=== PATIENT | male | born 1985 | race Caucasian/White ===

== ENCOUNTER 2021-11-03 12:38 | Emergency (ER) | payer OTHER ==
--- OUTSIDE RECORDS SUMMARY | 2021-11-03 12:40 | XMS REPORT | Continuity of Care Document ---
:1985 Author Organization [facility] t Address [address] [place] [address] [address] [place] [address] Care Team Providers Name Role Phone JOSE MARIA VAN Attending Clinician Unavailable PAULETTE Attending Clinician Unavailable TERRI Attending Clinician Unavailable Payers Payer Name Policy Type Policy Number Effective Date Expiration Date S liam [facility] [id number] 2020 00:00:00 Problems Condition Condition Condition Status Onset Resolution Last Treating Co mments Source Name Details Category Date Date Treatment Clinician Date Pain in Pain in Problem Active Univers both hands both hands [id number] [facility] [place] [facility] Bilateral Bilateral Problem 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 Physic i ans Allergies, Adverse Reactions, Alerts Allergy Allergy Status Severity Reaction(s) Onset Inactive Treating Comm ents Source Name Type Date Date Clinician Penicill Propensi Active Unknown Don't [place] ins ty to 4-20 Remember- Health adverse 00:00: was very reaction 00 young s Sulfa Propensi Active Unknown Don't [place] Antibiot ty to 4-20 Remember- Healt h ics adverse 00:00: was very reaction 00 young s Social History Social Habit Start Date Stop Date Quantity Comments Source Exposure to Not sure [facility] SARS-CoV-2 (event) Tobacco use and 2021-01-12 2021-01-12 Never used [place] Health exposure 00:00:00 00:00:00 Sex Ass[birth year] At [birth year] [facility] 00:00:00 00:00:00 Smoking Status Start Date Stop Date Source Never smoker [facility] Medications Ordered Filled Start Stop Current Ordering Indication Dosage Frequency Signature Comments Components Source Medication Medication Date Date Medication? Clinician (SIG) Name Name Diclofenac Diclofenac 2017-08 Yes ROQUE apply 1-2 Univers Sodium 1 % Sodium 1 % 0-02 GREASER grams to ity of Transdermal Transdermal 00:00: Jensen affected [place] Gel Gel 00 area 3-4 Physici times ans daily No known No [facility] medications Health Procedures Procedure Date / Time Performed Performing Clinician Reg e XR SHOULDER 2+ VIEWS 2021-01-12 13:42:22 Mckenzie Van [place] He alth LEFT Post Op [facility] 29 2018-09-05 00:00:00 [facility] Survey Physicians [UTP] Ortho - Surgery 2018-08-04 00:00:00 [facility] Scheduling Physicians [U] XRAY HAND MIN 3 2018-05-26 00:00:00 [facility] VWS RIGHT [id number] Physicians Plan of Care Planned Activity Planned Date Details Comments Source Diagnostic Test 2018-08-04 [UTP] Ortho - [facility] Pending 00:00:00 Surgery Scheduling Physician s [code = [UTP] Ortho - Surgery Scheduling] Encounters Start End Encounter Admission Attending Care Care Encounter Source Date/Time Date/Time Type Type Clinicians Facility Department ID 2021-01-12 Outpatient NI Mckenzie [facility] [id number] [place] 09:01:46 Health 2021-01-12 Outpatient [facility] [id number] [place] 08:33:53 Health 2021-01-12 2021-01-12 Office Mckenzie Van [facility] [id number] [place] 08:09:59 09:01:55 Visit [facility] [id number] Critical access hospital [id number] [facility] [id number] 2018-08-25 2018-08-25 Appointmen PAULETTE [facility] [id number] Univers 10:00:00 10:00:00 t; Jensen SCHAFER Ortho and ity of [facility] Spine WLS Bart s [facility] Brian Styles [place] ans 2018-08-14 2018-08-14 Appointmen PAULETTE [facility] [id number] Univers 09:30:00 09:30:00 t; Jensen SCHAFER it y of [place], [place] Brian SCHAFER M.D. ans 2018-08-04 2018-08-04 Appointmen PA[facility]LETTE [facility] [id number] Univers 09:45:00 09:45:00 t; Jensen SCHAFER Ortho and ity of [place], Spine WLS [place] Owen M.D. [place] POD 2 ans 2018-05-26 2018-05-26 [facility] [id number] Univers 08:30:00 08:30:00 t; Jensen SCHAFER Orthopedic ity [facility], Surgery - Bart SCHAFER Pendletonmillie Dunlap i, M.D. ans 2018-05-19 2018-05-[facility] [id number] Univers 14:45:00 14:45:00 t; Aminata NEVAREZ M.D. Orthopedics Will as Brian NEVAREZ M.D. ans Results Test Description Test Time Test Comments Results Result Sour e Comments XR shoulder 2+ 2021-01-12 Left shoulder: [place] Hea lth views left 13:52:15 Negative for fracture or dislocation [U] XRAY HAND MIN 2018-05-26 Images acquired, U niversity of 3 VWS LEFT [id number] 08:47:00 not reported on [place] as this accession Physicians number. [U] XRAY HAND MIN 2018-05-26 Images acquired, U niversity of 3 VWS RIGHT [id number] 08:47:00 [place] Physicians [place]. [U] XRAY ANKLE 2018-05-19 Images acquired, Univ ersity of MIN 3 VWS LEFT 14:33:00 not reported on [place] [address] this accession Physicians number.
--- NOTE | 2021-11-03 14:16 | RAD REPORT ---
EXAM DESCRIPTION: RAD - Knee Left 3 View - 11/03/2021 2:07 pm CLINICAL HISTORY: PAIN COMPARISON: No comparisons FINDINGS: Avulsion fracture is seen involving the lateral aspect of the patella. Small bony fragment s are present inferiorly. Patella william is noted.
--- NOTE | 2021-11-03 15:56 | EDPHYS ---
Physician Documentation [facility] [place] [facility] Name: José Miguel Zuniga Age: 35 yrs Sex: Male : 1985 Arrival Date: 11/03/2021 Time: 12:49 Bed 7 Private MD: ED Physician Sheyla Ortiz HPI: 11/03 15:58 This 35 yrs old Male presents to ER via EMS with complaints of Knee Injury. jr8 15:58 Onset: The symptoms/episode began/occurred acutely, today. Modifying factors: The jr8 symptoms are alleviated by remaining still, the symptoms are aggravated by movement. Associated signs and symptoms: The patient has no apparent associated signs or symptoms. Severity of symptoms: At their worst the symptoms were moderate, in the emergency department the symptoms are unchanged. The patient has not experienced similar symptoms in the past. The patient has not recently seen a physician. This is a 35-year-old male patient that presented to the emergency room with complaints of left knee pain. Patient stated that he was getting ready to leave a beach house and was moving things out. Was coming down the stairs and while doing so felt an immediate pop to his left knee. Patient since then has had difficulty with bearing weight and movement of the leg at the site of the knee.. Historical: - Allergies: 12:58 PENICILLINS; ld1 - Home Meds: 12:58 None [Active]; ld1 - PMHx: 12:58 None; ld1 - PSHx: 12:58 None; ld1 - Immunization history:: Adult Immunizations up to date, Client reports receiving the 2nd dose of the Covid vaccine. - Social history:: Smoking status: Patient denies any tobacco usage or history of. Patient uses alcohol. ROS: 15:58 Eyes: Negative for injury, pain, redness, and discharge, ENT: Negative for injury, jr8 pain, and discharge, Neck: Negative for injury, pain, and swelling, Cardiovascular: Negative for chest pain, palpitations, and edema, Respiratory: Negative for shortness of breath, cough, wheezing, and pleuritic chest pain, Abdomen/GI: Negative for abdominal pain, nausea, vomiting, diarrhea, and constipation, Back: Negative for injury and pain, Skin: Negative for injury, rash, and discoloration, Neuro: Negative for headache, weakness, numbness, tingling, and seizure. 15:58 MS/extremity: Positive for decreased range of motion, pain, swelling, tenderness, of the left knee. Exam: 15:58 Constitutional: This is a well developed, well nourished patient who is awake, alert, jr8 and in no acute distress. Cardiovascular: Regular rate and rhythm with a normal S1 and S2. No gallops, murmurs, or rubs. Normal PMI, no JVD. No pulse deficits. Respiratory: Lungs have equal breath sounds bilaterally, clear to auscultation and percussion. No rales, rhonchi or wheezes noted. No increased work of breathing, no retractions or nasal flaring. Skin: Warm, dry with normal turgor. Normal color with no rashes, no lesions, and no evidence of cellulitis. Neuro: Awake and alert, GCS 15, oriented to person, place, time, and situation. Motor strength 5/5 in all extremities. Sensory grossly intact. 15:58 Musculoskeletal/extremity: Extremities: grossly normal except: noted in the left knee: decreased ROM, pain, swelling, tenderness, Patient has mild to moderate effusion of the anterior knee with elevation of the patella proximal to its anatomical position. Patient is unable to lift leg., Pulses: noted to be 2+ in the left posterior tibial artery and left dorsalis pedis artery, Sensation intact. Vital Signs: 12:57 BP 179 / 121; Pulse 82; Resp 18; Temp 98.3(O); Pulse Ox 98% on R/A; Weight 97.52 kg; ld1 Height 5 ft. 11 in. (180.34 cm); Pain 6/10; 13:35 BP 172 / 106; Pulse 87; Resp 16; Pulse Ox 100% ; vg1 14:42 BP 172 / 113; Pulse 89; Resp 15; Pulse Ox 100% ; Pain 6/10; ld1 15:30 BP 176 / 106; Pulse 86; Resp 18; Pulse Ox 99% on R/A; ld1 12:57 Body Mass Index 29.99 (97.52 kg, 180.34 cm) ld1 Procedures: 15:58 Splinting: Splint applied to left leg using knee immobilizer, applied by nurse. jr8 Examined by me, post splint application: neurovascular intact, 2+ distal pulses palpable, brisk capillary refill noted, Patient tolerated well. Crutch training provided to patient and/or family. Return demonstration given. MDM: 13:15 Patient medically screened. jr8 15:53 Data reviewed: vital signs, nurses notes, radiologic studies, plain films. Data jr8 interpreted: Pulse oximetry: on room air is 99 %. Interpretation: normal. Counseling: I had a detailed discussion with the patient and/or guardian regarding: the historical points, exam findings, and any diagnostic results supporting the discharge/admit diagnosis, radiology results, the need for outpatient follow up, a orthopedic surgeon, to return to the emergency department if symptoms worsen or persist or if there are any questions or concerns that arise at home. ED course: Discussed case with Dr. Sandra. He is okay with patient being in the immobilizer and crutches and then can follow-up with orthopedic of his choice as [facility]. This was relayed to the patient who is good with this and will follow up with orthopedic on his side [facility]. In the meantime recommended continuing to wear the knee immobilizer and being completely nonweightbearing on that side. Needs to do anti-inflammatories elevation and ice for swelling as well. If worse to follow-up at the nearest hospital where he lives. Patient did with this at this time.. 11/03 13:43 Order name: XRAY Knee LEFT 3 view; Complete Time: 14:20 jr8 11/03 14:24 Order name: Knee Immobilizer; Complete Time: 14:43 jr8 11/03 14:24 Order name: Crutches; Complete Time: 14:43 jr8 Administered Medications: No medications were administered Disposition Summary: 11/03/21 15:56 Discharge Ordered Location: Home jr8 Problem: new jr8 Symptoms: have improved jr8 Condition: Stable jr8 Diagnosis - Fracture of patella jr8 - Infrapatellar Tendon Rupture jr8 Followup: jr8 - With: Private Physician - When: 2 - 3 days - Reason: Recheck today's complaints, Continuance of care, Re-evaluation by your physician Discharge Instructions: - Discharge Summary Sheet jr8 - Patellar Tendon Tear jr8 Forms: - Medication Reconciliation Form jr8 - Thank You Letter jr8 - Antibiotic Education jr8 - Prescription Opioid Use jr8 Prescriptions: - meloxicam 15 mg Oral tablet - take 1 tablet by ORAL route once daily; 10 tablet; Refills: 0, Product jr8 Selection Permitted Signatures: Dispatcher [employer] Ld Eason PA PA jr8 Debbi Mcknight, RN RN ld1 Corrections: (The following items were deleted from the chart) 12:59 12:58 PSHx: Unable to Obtain; ld1 ld1
--- NOTE | 2021-11-03 15:56 | ER ---
Nurse's Notes [facility] Name: José Miguel Zuniga Age: 35 yrs Sex: Male : 1985 Arrival Date: 11/03/2021 Time: 12:49 Bed 7 Private MD: Diagnosis: Fracture of patella;Infrapatellar Tendon Rupture Presentation: 11/03 12:57 Chief complaint: Patient states: I was packing up the beach house [place] were staying at, ld1 going down the stairs and I felt a pop in my left knee. Pt reports he thinks his left knee is dislocated. Coronavirus screen: At this time, the client does not indicate any symptoms associated with coronavirus-19. Ebola Screen: No symptoms or risks identified at this time. Initial Sepsis Screen: Does the patient meet any 2 criteria? No. Patient's initial sepsis screen is negative. Does the patient have a suspected source of infection? No. Patient's initial sepsis screen is negative. Risk Assessment: Do you want to hurt yourself or someone else? Patient reports no desire to harm self or others. Onset of symptoms was November 03, 2021. 12:57 Method Of Arrival: EMS: [facility] ld1 12:57 Acuity: KATIA 4 ld1 Triage Assessment: 12:58 General: Appears in no apparent distress. comfortable, Behavior is calm, cooperative, ld1 appropriate for age. Pain: Complains of pain in left knee Pain does not radiate. Pain currently is 7 out of 10 on a pain scale. Quality of pain is described as throbbing, Pain began suddenly, Is continuous. EENT: No signs and/or symptoms were reported regarding the EENT system. Neuro: Level of Consciousness is awake, alert, obeys commands, Oriented to person, place, time, situation. Cardiovascular: Capillary refill < 3 seconds Patient's skin is warm and dry. Rhythm is regular. Respiratory: Airway is patent Respiratory effort is even, unlabored, Respiratory pattern is regular, symmetrical. GI: Abdomen is round non-distended. : No signs and/or symptoms were reported regarding the genitourinary system. Derm: No signs and/or symptoms reported regarding the dermatologic system. Musculoskeletal: Swelling present in left knee. Injury Description: possible knee dislocation. Historical: - Allergies: 12:58 PENICILLINS; ld1 - Home Meds: 12:58 None [Active]; ld1 - PMHx: 12:58 None; ld1 - PSHx: 12:58 None; ld1 - Immunization history:: Adult Immunizations up to date, Client reports receiving the 2nd dose of the Covid vaccine. - Social history:: Smoking status: Patient denies any tobacco usage or history of. Patient uses alcohol. Screenin:00 Abuse screen: Denies threats or abuse. Denies injuries from another. Nutritional ld1 screening: No deficits noted. Tuberculosis screening: No symptoms or risk factors identified. Fall Risk None identified. Assessment: 13:00 Reassessment: See triage assessment. ld1 14:43 Reassessment: Patient appears in no apparent distress at this time. Patient and/or ld1 family updated on plan of care and expected duration. Pain level reassessed. Patient is alert, oriented x 3, equal unlabored respirations, skin warm/dry/pink. Vital Signs: 12:57 BP 179 / 121; Pulse 82; Resp 18; Temp 98.3(O); Pulse Ox 98% on R/A; Weight 97.52 kg; ld1 Height 5 ft. 11 in. (180.34 cm); Pain 6/10; 13:35 BP 172 / 106; Pulse 87; Resp 16; Pulse Ox 100% ; vg1 14:42 BP 172 / 113; Pulse 89; Resp 15; Pulse Ox 100% ; Pain 6/10; ld1 15:30 BP 176 / 106; Pulse 86; Resp 18; Pulse Ox 99% on R/A; ld1 12:57 Body Mass Index 29.99 (97.52 kg, 180.34 cm) ld1 ED Course: 12:49 Patient arrived in ED. ld1 12:52 Maribel Alcala RN is Primary Nurse. vg1 12:53 Primary Nurse role handed off by Maribel Alcala RN ld1 12:53 Debbi Mcknight, ANNA is Primary Nurse. ld1 12:53 Debbi Mcknight, ANNA is Primary Nurse. ld1 12:58 Triage completed. ld1 12:58 Arm band placed on right wrist. ld1 13:00 Patient has correct armband on for positive identification. Placed in gown. Bed in low ld1 position. Call light in reach. Side rails up X2. quality assurance monitor chassis on. Pulse ox on. NIBP on. Door closed. Noise minimized. Warm blanket given. 13:00 No provider procedures requiring assistance completed. ld1 13:14 Ld Smith PA is PHCP. jr8 13:14 Sheyla Ortiz MD is Attending Physician. jr8 14:07 XRAY Knee LEFT 3 view In Process Unspecified. EDMS 14:44 Crutch training done. Knee immobilizer applied on left knee. em1 16:47 Patient did not have IV access during this emergency room visit. ld1 Administered Medications: No medications were administered Outcome: 15:56 Discharge ordered by . jr8 16:47 Discharged to home via wheelchair, with crutches, with family. ld1 16:47 Condition: stable 16:47 Discharge instructions given to patient, family, Instructed on discharge instructions, follow up and referral plans. medication usage, Demonstrated understanding of instructions, follow-up care, medications, Prescriptions given X 1. 16:47 Patient left the ED. ld1 Signatures: Dispatcher [employer] EDWI Ramesh Chávez em1 Ld Smith PA PA jr8 Maribel Alcala, RN RN vg1 Debbi Mcknight RN RN ld1 Corrections: (The following items were deleted from the chart) 12:59 12:58 PSHx: Unable to Obtain; ld1 ld1
[2021-11-03 16:52] VITALS: TEMP 98.3
[2021-11-03 16:55] VITALS: BP 176/106; O2SAT 99
== END 2021-11-03 16:47 | disposition home or self-care (01) ==
LOC: ER 12:38
DX: S82.002A Unspecified fracture of left patella, initial encounter for closed fracture (principal); S76.112A Strain of left quadriceps muscle, fascia and tendon, initial encounter; Z88.0 Allergy status to penicillin
CPT/HCPCS: 99284